=== PATIENT | male | born 1945 | race Caucasian/White ===

== ENCOUNTER 2017-11-07 23:41 | Inpatient (IN) | payer OTHER ==
[~2017-11-07] VITALS: Ht 193 cm; Wt 107.5 kg
[~2017-11-07 23:41] MED LIST: ALLO-52 PO; AMI200T PO; ASPI-231 PO; CEPH500T PO; ESCI10TA53 PO; LOSA25TA40 PO; MET50T PO; PRA25T PO; TERA2CAP45 PO; TOPI50TA53 PO; WARF2TAB49 PO; WARPRX PO; [UNRECOGNIZED DRUG - CODE] PO
[2017-11-08 01:27] LABS: Eosinophils # (auto) 0.1 uL; Hemoglobin 10.3 g/dL (13.5-17.5); Lymphocytes # (auto) 0.7 uL; Monocytes # (auto) 0.5 uL; Platelet Count (auto) 103 10^3/uL (140-450)
[2017-11-08 01:29] LABS: Basophils # (auto) 0.1 uL; Eosinophils % (auto) 1.6 % (0.0-7.0); Hematocrit 31.1 % (41.0-53.0); Mean Corpuscular Hemoglobin 33.8 pg (28.0-32.0); Mean Corpuscular Hgb Conc. 33.2 g/dL (32.0-36.0); Mean Corpuscular Volume 101.8 fL (80.0-100.0); Monocytes % (auto) 8.6 % (0.0-12.0); Neutrophils # (auto) 4.1 uL; Neutrophils % (auto) 75.8 % (37.0-80.0); Red Blood Cells 3.06 10^6/uL (4.5-5.90); White Blood Cell 5.4 10^3/uL (4.4-10.8)
[2017-11-08] MEDS ORDERED: TETANUS IMMUNE GLOBULIN 250 UNIT/ML SYRG IM ONE (01:45)
[2017-11-08 01:48] LABS: Alanine Aminotransferase 7 U/L (16-61); Anion Gap 9 (5-15); Aspartate Aminotransferase 15 U/L (15-37); Blood Urea Nitrogen 15 mg/dL (7-18); Carbon Dioxide 15 mmol/L (21-32); Chloride 125 mmol/L (98-107); GFR African American 123 mL/min; GFR Non-African American 102 mL/min; Glucose 71 mg/dL (74-106); Magnesium 1.3 mg/dL (1.6-2.6); Partial Thromboplastin Time 67.5 sec (23.78-33.04); Prothrombin Time 70.9 sec (9.27-12.13); Sodium 149 mmol/L (136-145)
[2017-11-08 01:53] LABS: Alkaline Phosphatase 52 U/L (45-117); Bilirubin, Total 0.4 mg/dL (0.2-1.0); Total Protein 4.2 g/dL (6.4-8.2)
[2017-11-08] MEDS ORDERED: TETANUS-DIPTH-ACEL PERTUSSIS 0.5ML SYRG IM ONE (02:00)
[2017-11-08 02:01] LABS: Potassium 2.1 mmol/L (3.5-5.1)
[2017-11-08 02:05] LABS: INR 7.42 (0.9-1.15)
[2017-11-08 02:09] LABS: Calcium < 5.0 mg/dL (8.5-10.1)
[2017-11-08] MEDS ORDERED: POTASSIUM CHL 20 Meq TABLET PO ONE ×2 (02:15→12:15)
[2017-11-08] MEDS ORDERED: SOD CHL 0.9%/ KCL 40MEQ 1,000 ML IV ONE (02:15)
[2017-11-08] MEDS ORDERED: CALCIUM W/VIT D (600MG/400IU) TAB PO ONE (02:15)
[2017-11-08] MEDS: POTASSIUM CHL 20MEQ/100ML 100 ML IV SCH ×2 (03:21→04:45)
[2017-11-08] MEDS ORDERED: METOPROLOL TARTRATE 50 MG TAB PO ONE (06:00)
[2017-11-08] MEDS ORDERED: TEMAZEPAM 15 MG CAP PO PRN (06:30)
[2017-11-08] MEDS ORDERED: ALBUTEROL SULF 2.5 MG/0.5ML(0.5%) NEB SOLN NEB ONE (06:30)
[2017-11-08] MEDS ORDERED: HYDROcodone-ACET 5/325MG TAB PO PRN (06:30)
[2017-11-08] MEDS ORDERED: METOPROLOL TARTRATE 25 MG TAB PO ONE (06:30)
[2017-11-08] MEDS ORDERED: IPRATROPIUM BROM 0.5 MG/2.5ML INH SOL NEB ONE (06:30)
[2017-11-08] MEDS ORDERED: ONDANSETRON HCL 4 MG/2 ML VIAL IV PRN (06:30)
[2017-11-08] MEDS ORDERED: ACETAMINOPHEN 500 MG TAB PO PRN (06:30)
[2017-11-08] MEDS ORDERED: LACTULOSE 20Gm/30ML SOLN PO PRN (06:30)
[2017-11-08] MEDS: LORazepam 0.5 MG TAB PO PRN ×2 (07:40→13:00)
[2017-11-08 08:45] LABS: Urine WBC None Seen /hpf (0 - 3)
[2017-11-08 08:59] LABS: Urine Bacteria NONE SEEN /hpf (None Seen); Urine Blood Negative /uL (Negative); Urine Specific Gravity 1.008 (1.001-1.035)
[2017-11-08 09:00] VITALS: BP 137/74
[2017-11-08] MEDS ORDERED: FUROSEMIDE 20 MG/2 ML VIAL IV ONE (09:00)
[2017-11-08] MEDS: TOPIRAMATE 25 MG TAB PO SCH ×2 (09:11→21:42)
[2017-11-08] MEDS: ASPirin-EC 81 mg tab PO SCH (09:12)
[2017-11-08] MEDS ORDERED: LOSARTAN POTASSIUM 25 MG TAB PO SCH (10:00)
[2017-11-08] MEDS: IPRATROPIUM BROM 0.5 MG/2.5ML INH SOL NEB SCH ×3 (11:55→23:46)
[2017-11-08] MEDS: ALBUTEROL SULF 2.5 MG/0.5ML(0.5%) NEB SOLN NEB SCH ×3 (11:55→23:46)
[2017-11-08] MEDS ORDERED: PHYTONADIONE ORAL Susp 10 mg/10ml PO ONE (12:00)
[2017-11-08] MEDS ORDERED: CALCIUM CHL 100MG/ML 500 MG in D5W 5% 100 ML IV ONE (12:30)
[2017-11-08 13:00] VITALS: BP 134/79
[2017-11-08 13:41] LABS: Prothrombin Time 50.9 sec (9.27-12.13)
[2017-11-08 13:43] LABS: INR 5.22 (0.9-1.15)
[2017-11-08] MEDS: MAGNESIUM SULFATE 1GM/100ML 100 ML IV SCH ×4 (14:00→16:00)
[2017-11-08] MEDS: CARBIDOPA W LEVODOPA 25/100mg TABLET PO SCH ×2 (14:16→21:42)
[2017-11-08 15:36] LABS: BUN/Creatinine Ratio 13.1; Calcium 8.2 mg/dL (8.5-10.1)
[2017-11-08 16:10] VITALS: BP 137/74
[2017-11-08 17:00] VITALS: BP 135/67
[2017-11-08] MEDS: CEFTRIAXONE SODIUM 2 GM in D5W 5% 50 ML IV SCH (18:40)
[2017-11-08] MEDS: METOPROLOL TARTRATE 25 MG TAB PO SCH (21:48)
[2017-11-08 22:00] VITALS: BP 140/86
[2017-11-08] MEDS ORDERED: TERAZOSIN HCL 1 MG CAP PO SCH (22:00)
[2017-11-08] MEDS ORDERED: METOPROLOL TARTRATE 50 MG TAB PO SCH (22:00)
[2017-11-09 05:00] VITALS: BP 151/95
[2017-11-09 06:30] LABS: Eosinophils # (auto) 0.2 uL; Hemoglobin 13.9 g/dL (13.5-17.5); Lymphocytes # (auto) 0.9 uL; Nucleated Red Blood Cells % 0.1 %
[2017-11-09 06:32] LABS: Basophils # (auto) 0 uL; Basophils % (auto) 0.7 % (0.0-2.0); Eosinophils % (auto) 3.1 % (0.0-7.0); Hematocrit 41.2 % (41.0-53.0); Lymphocytes % (auto) 17.2 % (10.0-50.0); Mean Corpuscular Hemoglobin 34.2 pg (28.0-32.0); Mean Corpuscular Hgb Conc. 33.8 g/dL (32.0-36.0); Mean Corpuscular Volume 101.2 fL (80.0-100.0); Monocytes # (auto) 0.6 uL; Monocytes % (auto) 12.2 % (0.0-12.0); Neutrophils # (auto) 3.5 uL; Neutrophils % (auto) 66.8 % (37.0-80.0); Platelet Count (auto) 129 10^3/uL (140-450); Red Blood Cells 4.07 10^6/uL (4.5-5.90); Red Cell Distribution Width 14.9 % (11.8-14.3); White Blood Cell 5.3 10^3/uL (4.4-10.8)
[2017-11-09] MEDS: ALBUTEROL SULF 2.5 MG/0.5ML(0.5%) NEB SOLN NEB SCH ×2 (06:32→11:36)
[2017-11-09] MEDS: IPRATROPIUM BROM 0.5 MG/2.5ML INH SOL NEB SCH ×2 (06:32→11:36)
[2017-11-09] MEDS: CARBIDOPA W LEVODOPA 25/100mg TABLET PO SCH ×2 (06:42→14:00)
[2017-11-09 06:52] LABS: Albumin 3.2 g/dL (3.4-5.0); BUN/Creatinine Ratio 12.7; Bilirubin, Total 0.7 mg/dL (0.2-1.0); Calcium 8.1 mg/dL (8.5-10.1); Magnesium 2.6 mg/dL (1.6-2.6); Phosphorus 2.6 mg/dL (2.5-4.90); Potassium 4.3 mmol/L (3.5-5.1); Total Protein 6.6 g/dL (6.4-8.2)
[2017-11-09 09:33] VITALS: BP 119/80
[2017-11-09] MEDS: TOPIRAMATE 25 MG TAB PO SCH (10:00)
[2017-11-09] MEDS ORDERED: SODIUM CHLORIDE 0.9% 1,000 ML IV SCH (10:15)
[2017-11-09] MEDS: METOPROLOL TARTRATE 25 MG TAB PO SCH (11:00)
[2017-11-09] MEDS: CEFTRIAXONE SODIUM 2 GM in D5W 5% 50 ML IV SCH (11:00)
[2017-11-09] MEDS: ASPirin-EC 81 mg tab PO SCH (11:00)
[2017-11-09 12:46] VITALS: BP 119/80
[2017-11-09 13:24] VITALS: BP 132/70
[2017-11-09] MEDS: LORazepam 0.5 MG TAB PO PRN (15:12)
== END 2017-11-09 16:15 | disposition hospice, home (50) | DRG 73 ==
LOC: EDUNIT# 23:41 → EDBD 23:41 → ER 23:41 → TELE 23:42 → TELE-WESTW 11-08 10:09 → TELE-CENTR 11-08 10:36
PROVIDERS: ADMIT Nurse Practitioner Family; ATTEND Internal Medicine
DX: G90.8 Other disorders of autonomic nervous system (principal); N17.0 Acute kidney failure with tubular necrosis; E43 Unspecified severe protein-calorie malnutrition; E87.0 Hyperosmolality and hypernatremia; E87.2 Acidosis; E87.6 Hypokalemia; S70.11XA Contusion of right thigh, initial encounter; J01.90 Acute sinusitis, unspecified; T45.515A Adverse effect of anticoagulants, initial encounter; E83.51 Hypocalcemia; E83.42 Hypomagnesemia; D64.9 Anemia, unspecified; E78.00 Pure hypercholesterolemia, unspecified; E78.5 Hyperlipidemia, unspecified; E83.39 Other disorders of phosphorus metabolism; E86.0 Dehydration; G20 Parkinson's disease; I11.0 Hypertensive heart disease with heart failure; I25.10 Atherosclerotic heart disease of native coronary artery without angina pectoris; J32.4 Chronic pansinusitis; S61.412A Laceration without foreign body of left hand, initial encounter; W18.39XA Other fall on same level, initial encounter; I50.9 Heart failure, unspecified; I48.2 Chronic atrial fibrillation; M10.9 Gout, unspecified; N40.0 Benign prostatic hyperplasia without lower urinary tract symptoms; Z79.01 Long term (current) use of anticoagulants; Z79.82 Long term (current) use of aspirin; Y93.89 Activity, other specified; Y92.091 Bathroom in other non-institutional residence as the place of occurrence of the external cause; Y99.8 Other external cause status; Z68.28 Body mass index [BMI] 28.0-28.9, adult; Z23 Encounter for immunization
CPT/HCPCS: 36415; 70450; 70486; 71045; 80048; 80053; 81001; 83735; 83880; 84100; 84484; 85025; 85610; 85730; 90715; 94640; 96361; 96365; 96375; J0696; J3480; J7060